=== PATIENT | female | born 1990 ===

== ENCOUNTER 2023-09-11 19:35 | Emergency (ER) | payer OTHER ==
[2023-09-11] MEDS: Sodium Chloride 0.9% 1,000 ML IV ONE ×3 (20:14→23:52)
[2023-09-11] MEDS: Ondansetron 4 MG/2 ML SDV IVPUSH ONE (20:15)
[2023-09-11] MEDS: Ketorolac 30 MG/ML SDV IVPUSH ONE (20:15)
[2023-09-11] MEDS: Morphine 4 MG/ML Syringe IVPUSH ONE (20:21)
[2023-09-11 20:26] LABS: BASOPHILS ABSOLUTE AUTO 0.06 K/uL (0.00-0.20); BASOPHILS PERCENT AUTO 0.4 % (0.0-1.0); EOSINOPHILS ABSOLUTE AUTO 0.24 K/uL (0.00-0.45); EOSINOPHILS PERCENT AUTO 1.7 % (0.0-6.0); HEMATOCRIT 35.5 % (37.0-47.0); HEMOGLOBIN 12.1 g/dL (12.0-16.0); IMMATURE GRAN ABSOLUTE AUTO 0.04 K/uL (0.00-0.05); IMMATURE GRAN PERCENT AUTO 0.3 % (0.0-0.4); LYMPHOCYTES PERCENT AUTO 15.7 % (24.0-44.0); MEAN CORPUSCULAR HEMOGLOBIN 28.3 pg (28.0-32.0); MEAN CORPUSCULAR HGB CONC 34.1 g/dL (32.0-36.0); MEAN CORPUSCULAR VOLUME 82.9 fL (83.0-99.0); MEAN PLATELET VOLUME 9.7 fL (9.4-12.3); MONOCYTES ABSOLUTE AUTO 0.74 K/uL (0.00-0.80); MONOCYTES PERCENT AUTO 5.3 % (0.0-8.0); NEUTROPHILS ABSOLUTE AUTO 10.75 K/uL (1.80-7.70); NEUTROPHILS PERCENT AUTO 76.6 % (41.0-71.0); PLATELET COUNT,PLT 259 K/uL (150-400); RED BLOOD CELL COUNT 4.28 M/uL (4.10-5.30); WHITE BLOOD CELL COUNT,WBC 14.03 K/uL (3.9-11.3)
[2023-09-11] MEDS: fentaNYL 50 MCG/ML SDV IVPUSH ONE (20:41)
[2023-09-11 21:24] LABS: ALBUMIN 3.5 g/dL (3.4-5.0); BILIRUBIN TOTAL 0.5 mg/dL (0.2-1.0); CALCIUM 8.5 mg/dL (8.5-10.1); CARBON DIOXIDE,CO2 20.3 mmol/L (21.0-32.0); CREATININE 0.7 mg/dL (0.6-1.0); EST CRCL DRUG DOSING (CG) 88.72 mL/min; POTASSIUM,K 3.7 mmol/L (3.5-5.1); PROTEIN TOTAL,TP 7.1 g/dL (6.4-8.2)
[2023-09-11] MEDS: Tranexamic Acid 1,000 MG in Sodium Chloride 0.9% 100 ML IV ONE (21:25)
[2023-09-11 22:17] LABS: BASOPHILS ABSOLUTE AUTO 0.05 K/uL (0.00-0.20); BASOPHILS PERCENT AUTO 0.3 % (0.0-1.0); EOSINOPHILS ABSOLUTE AUTO 0.08 K/uL (0.00-0.45); EOSINOPHILS PERCENT AUTO 0.5 % (0.0-6.0); HEMOGLOBIN 11.5 g/dL (12.0-16.0); IMMATURE GRAN ABSOLUTE AUTO 0.09 K/uL (0.00-0.05); IMMATURE GRAN PERCENT AUTO 0.5 % (0.0-0.4); LYMPHOCYTES PERCENT AUTO 9.6 % (24.0-44.0); MEAN CORPUSCULAR HEMOGLOBIN 28.8 pg (28.0-32.0); MEAN CORPUSCULAR HGB CONC 33.8 g/dL (32.0-36.0); MEAN PLATELET VOLUME 9.7 fL (9.4-12.3); MONOCYTES ABSOLUTE AUTO 0.66 K/uL (0.00-0.80); NEUTROPHILS ABSOLUTE AUTO 14.18 K/uL (1.80-7.70); NEUTROPHILS PERCENT AUTO 85.1 % (41.0-71.0); PLATELET COUNT,PLT 240 K/uL (150-400); WHITE BLOOD CELL COUNT,WBC 16.66 K/uL (3.9-11.3)
[2023-09-11 22:27] LABS: APPEARANCE,URINE CLOUDY; BILIRUBIN,URINE NEGATIVE (NEGATIVE); COLOR,URINE YELLOW; GLUCOSE,URINE NEGATIVE (NEGATIVE); KETONES,URINE NEGATIVE (NEGATIVE); LEUKOCYTE ESTERASE,URINE TRACE (NEGATIVE); NITRITE,URINE NEGATIVE (NEGATIVE); OCCULT BLOOD,URINE LARGE (NEGATIVE); PROTEIN,URINE NEGATIVE (NEGATIVE); UROBILINOGEN,URINE 0.2 EU/dL (<2.0)
[2023-09-11 22:42] LABS: BACTERIA,URINE RARE (NEGATIVE); EPITHELIAL CELLS,URINE FEW (NONE-FEW); MUCUS,URINE LIGHT (NONE-MOD); RBC,URINE TOO NUMEROUS TO CT (0-2/HPF); WBC,URINE 0-2 (0-5/HPF)
== END 2023-09-12 00:59 | disposition home or self-care (01) ==
LOC: MW.ED 19:35
DX: O03.9 Complete or unspecified spontaneous abortion without complication (principal); Z75.8 Other problems related to medical facilities and other health care; Z3A.00 Weeks of gestation of pregnancy not specified
CPT/HCPCS: 36415; 76817; 80053; 81001; 84702; 85025; 86850; 86900; 86901; 96361; 96374; 96375; 99284; J1885; J2405; J3010; J3490; J7030